=== PATIENT | male | born 1970 | race American Indian/Alaskan Native ===

== ENCOUNTER 2019-02-06 12:09 | Emergency (ER) | payer BC ==
[2019-02-06 12:23] VITALS: BP 173/102
--- NOTE | 2019-02-06 12:24 | Emergency Department Report ---
Blank Doc - Documentation Documentation: 48 y o male with Acid reflux dz presents with abdominal pain with nausea and vo mitting that started today. states he ate chick danny a yesterday no unusual water. intermittent active vomitting UA/UDS labs ordered
[2019-02-06] MEDS ORDERED: NACL 0.9% 1000 ML 1,000 ML IV ONE (13:04)
[2019-02-06] MEDS ORDERED: ZOFRAN IV ONE (13:04)
[2019-02-06] MEDS ORDERED: GEODON IM ONE (13:04)
[2019-02-06] MEDS ORDERED: BENTYL IM ONE (13:04)
[2019-02-06] MEDS ORDERED: PEPCID IV ONE (13:04)
[2019-02-06 13:07] LABS: Bilirubin,Urine NEG (Negative); Color,Urine Yellow (Yellow)
[2019-02-06 13:08] LABS: Blood,Urine NEG (Negative); Mucus,Urine 2+ /HPF; Protein,Urine <15 mg/dL mg/dL (Negative); RBC,Urine < 1.0 /HPF (0.0-6.0); Urobilinogen,Urine < 2.0 mg/dL (<2.0)
[2019-02-06] MEDS ORDERED: WATER FOR INJ Sterile (PF) 10 ML ONE (13:12)
[2019-02-06 13:25] LABS: Alanine Aminotransferase 20 units/L (7-56); Albumin 4.4 g/dL (3.9-5); BUN/Creatinine Ratio 10; Blood Urea Nitrogen 9 mg/dL (9-20); Calcium 9.1 mg/dL (8.4-10.2); Hemolysis Index 87
[2019-02-06 13:25] LABS: Amphetamine Screen,Urine PRESUMPTIVE NEGATIVE; Benzodiazepines Screen,Urine PRESUMPTIVE NEGATIVE; Cocaine Screen,Urine PRESUMPTIVE NEGATIVE; Methadone Screen,Urine PRESUMPTIVE NEGATIVE; Opiate Screen,Urine PRESUMPTIVE NEGATIVE
[2019-02-06 13:26] LABS: Basophils % (Auto) 0.6 % (0.0-1.8); Eosinophils % (Auto) 0.2 % (0.0-4.3); Hematocrit 42.1 % (35.5-45.6); Hemoglobin 14.6 gm/dl (11.8-15.2); Lymphocytes # (Auto) 1.2 K/mm3 (1.2-5.4); Lymphocytes % (Auto) 14.5 % (13.4-35.0); Mean Corpuscular HGB Conc 35 % (32-34); Mean Corpuscular Volume 93 fl (84-94); Monocytes # (Auto) 0.4 K/mm3 (0.0-0.8); Monocytes % (Auto) 4.5 % (0.0-7.3); Platelet Count 239 K/mm3 (140-440); Red Blood Count 4.51 M/mm3 (3.65-5.03); Red Cell Distribution Width 13.8 % (13.2-15.2)
[2019-02-06 13:39] LABS: Cannabinoid Screen,Urine PRESUMPTIVE POSITIVE
[2019-02-06] MEDS ORDERED: REGLAN IV ONE (15:54)
--- NOTE | 2019-02-06 17:00 | Emergency Department Report ---
Vomiting/Diarrhea - HPI Chief Complaint: Nausea/Vomiting/Diarrhea Stated Complaint: NAUSE/DIZZY/ Time Seen by Provider: 02/06/19 12:20 Duration: Today Severity: severe Nausea/Vomiting Severity: Severe Diarrhea Severity: None Pain Location: Epigastric Pain Severity: Mild Symptoms: No Able to Tolerate Fluids Other History: Patient is a 48-year-old [place] male with a past history of diabetes and gastroparesis who is here for epigastric discomfort. Patient is retching and gagging states he cannot keep anything down. ED Review of Systems ROS: Stated complaint: NAUSE/DIZZY/ Other details as noted in HPI Comment: All other systems reviewed and negative ED Past Medical Hx - Past Medical History Hx Hypertension: Yes Hx Diabetes: Yes Hx GERD: Yes Hx Asthma: Yes - Surgical History Past Surgical History?: No - Social History Smoking Status: Never Smoker Substance Use Type: None - Medications Home Medications: Home Medications Medication Instructions Recorded Confirmed Last Taken Type Dicyclomine [Bentyl] 10 mg PO QID #15 capsule 02/06/19 Unknown Rx Ondansetron [Zofran Odt] 4 mg PO Q8HR PRN #10 tab.rapdis 02/06/19 Unknown Rx Vomiting Diarrhea Exam - Exam General: Vital signs noted. distress secondary to nausea. HEENT: Yes Moist Mucous Membranes, No Pharyngeal Erythema, No Pharyngeal Exudates, No Rhinorrhea, No Conjuctival Injection, No Frontal Tenderness, No Maxillary Tenderness Neck: No Adenopathy, No Rigidity Lungs: Yes Clear Lung Sounds, Yes Good Air Exchange, No Wheezes, No Stridor, No Cough, No Nasal Flaring, No Retractions, No Use of Accessory Muscles Heart exam: Regular: Yes, Murmur: No, Tachycardia: No Abdomen: Tenderness: Yes (epigastric), Peritoneal Signs: No, Distention: No, Hyperactive Bowel sounds: No Skin exam: Rash: No, Edema: No, Normal turgor: Yes Neurologic: Alert and oriented, no deficits. Musculoskeletal: Unremarkable. ED Course Vital Signs 02/06/19 12:19 Temperature 97.9 F Pulse Rate 65 Respiratory 16 Rate Blood Pressure 173/102 O2 Sat by Pulse 99 Oximetry ED Medical Decision Making - Lab Data Result diagrams: 02/06/19 12:50 02/06/19 12:50 Lab Results 02/06/19 02/06/19 02/06/19 Range/Units 12:20 12:35 12:35 WBC (4.5-11.0) K/mm3 RBC (3.65-5.03) M/mm3 Hgb (11.8-15.2) gm/dl Hct (35.5-45.6) % MCV (84-94) fl MCH (28-32) pg MCHC (32-34) % RDW (13.2-15.2) % Plt Count (140-440) K/mm3 Lymph % (Auto) (13.4-35.0) % [place] % (Auto) (0.0-7.3) % Eos % (Auto) (0.0-4.3) % Baso % (Auto) (0.0-1.8) % Lymph # (1.2-5.4) K/mm3 [place] # (0.0-0.8) K/mm3 Eos # (0.0-0.4) K/mm3 Baso # (0.0-0.1) K/mm3 Seg Neutrophils % (40.0-70.0) % Seg Neutrophils # (1.8-7.7) K/mm3 Sodium (137-145) mmol/L Potassium (3.6-5.0) mmol/L Chloride (98-107) mmol/L Carbon Dioxide (22-30) mmol/L Anion Gap mmol/L BUN (9-20) mg/dL Creatinine (0.8-1.5) mg/dL Estimated GFR ml/min BUN/Creatinine Ratio % Glucose (75-100) mg/dL POC Glucose 231 H (70-105) Calcium (8.4-10.2) mg/dL Total Bilirubin (0.1-1.2) mg/dL AST (5-40) units/L ALT (7-56) units/L Alkaline Phosphatase (35-129) units/L Total Protein (6.3-8.2) g/dL Albumin (3.9-5) g/dL Albumin/Globulin Ratio % Amylase (27-131) units/L Lipase (13-60) units/L Urine Color Yellow (Yellow) Urine Turbidity Clear (Clear) Urine pH 7.0 (5.0-7.0) Ur Specific [place] 1.024 (1.003-1.030) Urine Protein <15 mg/dl (Negative) mg/dL Urine Glucose (UA) >=500 (Negative) mg/dL Urine Ketones Tr (Negative) mg/dL Urine Blood Neg (Negative) Urine Nitrite Neg (Negative) Urine Bilirubin Neg (Negative) Urine Urobilinogen < 2.0 (<2.0) mg/dL Ur Leukocyte Esterase Neg (Negative) Urine WBC (Auto) 1.0 (0.0-6.0) /HPF Urine RBC (Auto) < 1.0 (0.0-6.0) /HPF U Epithel Cells (Auto) 1.0 (0-13.0) /HPF Urine Mucus 2+ /HPF Urine Opiates Screen Presumptive negative Urine Methadone Screen Presumptive negative Ur Barbiturates Screen Presumptive negative Ur Phencyclidine Scrn Presumptive negative Ur Amphetamines Screen Presumptive negative U Benzodiazepines Scrn Presumptive negative Urine Cocaine Screen Presumptive negative U Marijuana (THC) Screen Presumptive positive Drugs of Abuse Note Disclamer Plasma/Serum Alcohol (0-0.07) % 02/06/19 02/06/19 02/06/19 Range/Units 12:50 12:50 12:50 WBC 8.2 (4.5-11.0) K/mm3 RBC 4.51 (3.65-5.03) M/mm3 Hgb 14.6 (11.8-15.2) gm/dl Hct 42.1 (35.5-45.6) % MCV 93 (84-94) fl MCH 32 (28-32) pg MCHC 35 H (32-34) % RDW 13.8 (13.2-15.2) % Plt Count 239 (140-440) K/mm3 Lymph % (Auto) 14.5 (13.4-35.0) % [place] % (Auto) 4.5 (0.0-7.3) % Eos % (Auto) 0.2 (0.0-4.3) % Baso % (Auto) 0.6 (0.0-1.8) % Lymph # 1.2 (1.2-5.4) K/mm3 [place] # 0.4 (0.0-0.8) K/mm3 Eos # 0.0 (0.0-0.4) K/mm3 Baso # 0.0 (0.0-0.1) K/mm3 Seg Neutrophils % 80.2 H (40.0-70.0) % Seg Neutrophils # 6.5 (1.8-7.7) K/mm3 Sodium 141 (137-145) mmol/L Potassium 3.9 (3.6-5.0) mmol/L Chloride 104.9 (98-107) mmol/L Carbon Dioxide 20 L (22-30) mmol/L Anion Gap 20 mmol/L BUN 9 (9-20) mg/dL Creatinine 0.9 (0.8-1.5) mg/dL Estimated GFR > 60 ml/min BUN/Creatinine Ratio 10 % Glucose 236 H (75-100) mg/dL POC Glucose (70-105) Calcium 9.1 (8.4-10.2) mg/dL Total Bilirubin 0.60 (0.1-1.2) mg/dL AST 18 (5-40) units/L ALT 20 (7-56) units/L Alkaline Phosphatase 46 (35-129) units/L Total Protein 6.9 (6.3-8.2) g/dL Albumin 4.4 (3.9-5) g/dL Albumin/Globulin Ratio 1.8 % Amylase 55 (27-131) units/L Lipase 24 (13-60) units/L Urine Color (Yellow) Urine Turbidity (Clear) Urine pH (5.0-7.0) Ur Specific [place] (1.003-1.030) Urine Protein (Negative) mg/dL Urine Glucose (UA) (Negative) mg/dL Urine Ketones (Negative) mg/dL Urine Blood (Negative) Urine Nitrite (Negative) Urine Bilirubin (Negative) Urine Urobilinogen (<2.0) mg/dL Ur Leukocyte Esterase (Negative) Urine WBC (Auto) (0.0-6.0) /HPF Urine RBC (Auto) (0.0-6.0) /HPF U Epithel Cells (Auto) (0-13.0) /HPF Urine Mucus /HPF Urine Opiates Screen Urine Methadone Screen Ur Barbiturates Screen Ur Phencyclidine Scrn Ur Amphetamines Screen U Benzodiazepines Scrn Urine Cocaine Screen U Marijuana (THC) Screen Drugs of Abuse Note Plasma/Serum Alcohol < 0.01 (0-0.07) % - Medical Decision Making Patient was hydrated and given meds for symptomatic relief and is feeling improvement. Patient discharged home. Critical care attestation.: If time is entered above; I have spent that time in minutes in the direct care of this critically ill patient, excluding procedure time. ED Disposition Clinical Impression: Gastroparesis Disposition: DC-01 TO HOME OR SELFCARE Is pt being admited?: No Does the pt Need Aspirin: No Condition: Stable Additional Instructions: Please follow-up with your mobility manager Time of Disposition: 16:40
== END 2019-02-06 17:10 | disposition home or self-care (01) ==
LOC: ED 12:09
DX: E11.43 Type 2 diabetes mellitus with diabetic autonomic (poly)neuropathy (principal); K31.84 Gastroparesis; I10 Essential (primary) hypertension; K21.9 Gastro-esophageal reflux disease without esophagitis; J45.909 Unspecified asthma, uncomplicated; Z88.6 Allergy status to analgesic agent
CPT/HCPCS: 36415; 80053; 80307; 81001; 82150; 82962; 83690; 85025; 96361; 96372; 96374; 96375; 99283; G0480; J0500; J2405; J2765; J3486; J7030; 80320

== ENCOUNTER 2019-10-16 08:50 | Emergency (ER) | payer BC ==
[2019-10-16] MEDS ORDERED: MORPHINE 2 MG/1 ML INJ IM ONE (10:53)
[2019-10-16] MEDS ORDERED: ALUM-MAG HYDROXIDE-SIMETHICONE 200-200-20MG/5ML ORAL LIQD 30 ML PO ONE (10:53)
[2019-10-16] MEDS ORDERED: LIDOCAINE VISCOUS 2% 15 ML ORAL LIQD PO ONE (10:53)
[2019-10-16] MEDS ORDERED: ONDANSETRON 4 MG/2 ML INJ IM ONE (10:54)
[2019-10-16] MEDS ORDERED: diphenhydrAMINE 50 MG/ML VIAL IM ONE (10:54)
--- NOTE | 2019-10-16 12:30 | Emergency Department Report ---
ED N/V/D HPI - General Chief complaint: Nausea/Vomiting/Diarrhea Stated complaint: N/V/ABD PAIN Time Seen by Provider: 10/16/19 10:30 Source: patient Mode of arrival: Ambulatory Limitations: No Limitations - History of Present Illness Initial comments: 49-year-old male with chronic abdominal pain, diarrhea and vomiting over the last 3 years. Patient states he was diagnosed with acid reflux by several gastroenterologists. States he recently had an upper GI and colonoscopy which were both unremarkable. Patient states every few months he will have e xacerbation of his GI symptoms. Patient presents today with epigastric pain and nausea. He was seen and evaluated 2 days ago at [facility]. Patient was discharged from the ER with several prescriptions, which patient states are currently not helping. Patient states usually when he received a GI cocktail along with morphine and Benadryl this usually relieves his symptoms. Patient reports marijuana use. MD complaint: nausea, vomiting, abdominal pain -: days(s) (5) Description of Vomiting: watery Associated Abdominal Pain: Yes Location: epigastric Radiation: other (diffuse abdomen) Severity: moderate Quality: aching Consistency: intermittent Improves with: medication Worsens with: eating Context: other (history of chronic abdominal pain) Associated Symptoms: nausea/vomiting. denies: fever/chills - Related Data Previous Rx's Medication Instructions Recorded Last Taken Type Dicyclomine [Bentyl] 10 mg PO QID #15 capsule 02/06/19 Unknown Rx Ondansetron [Zofran Odt] 4 mg PO Q8HR PRN #10 tab.rapdis 02/06/19 Unknown Rx Promethazine HCl [Phenergan SUPPOS] 1 supp RC Q6HR PRN #20 supp.rect 10/16/19 Unknown Rx Allergies Allergy/AdvReac Type Severity Reaction Status Date / Time morphine AdvReac Itching Verified 02/06/19 13:12 ED Review of Systems ROS: Stated complaint: N/V/ABD PAIN Other details as noted in HPI Comment: All other systems reviewed and negative Constitutional: denies: chills, fever Gastrointestinal: abdominal pain, nausea, vomiting, diarrhea ED Past Medical Hx - Past Medical History Previous Medical History?: Yes Hx Hypertension: Yes Hx Diabetes: Yes Hx GERD: Yes Hx Asthma: Yes - Social History Smoking Status: Never Smoker Substance Use Type: Marijuana - Medications Home Medications: Home Medications Medication Instructions Recorded Confirmed Last Taken Type Dicyclomine [Bentyl] 10 mg PO QID #15 capsule 02/06/19 Unknown Rx Ondansetron [Zofran Odt] 4 mg PO Q8HR PRN #10 tab.rapdis 02/06/19 Unknown Rx Promethazine HCl [Phenergan SUPPOS] 1 supp RC Q6HR PRN #20 supp.rect 10/16/19 Unknown Rx ED Physical Exam - General Limitations: No Limitations General appearance: alert, in no apparent distress - Head Head exam: Present: atraumatic, normocephalic - Eye Eye exam: Present: normal appearance - ENT ENT exam: Present: mucous membranes moist - Neck Neck exam: Present: normal inspection - Respiratory Respiratory exam: Present: normal lung sounds bilaterally. Absent: respiratory distress - Cardiovascular Cardiovascular Exam: Present: normal rhythm, bradycardia - GI/Abdominal GI/Abdominal exam: Present: soft, tenderness (mild epigastric tenderness). Absent: distended - Extremities Exam Extremities exam: Present: normal inspection - Neurological Exam Neurological exam: Present: alert, oriented X3 - Psychiatric Psychiatric exam: Present: normal affect, normal mood - Skin Skin exam: Present: warm, dry, intact, normal color ED Course Vital Signs 10/16/19 10/16/19 10/16/19 09:00 12:01 12:37 Temperature 98.4 F 98.4 F Pulse Rate 47 L 58 L 54 L Respiratory 18 18 16 Rate Blood Pressure 169/102 149/87 Blood Pressure 140/81 [Left] O2 Sat by Pulse 100 99 100 Oximetry ED Medical Decision Making - Medical Decision Making 49-year-old male with chronic GI issues. Recently seen at an outside facility 2 days ago for same. Vitals are normal here in the ED. Patient given GI cocktail, IM morphine and Benadryl. Patient feeling much better at this time. Tolerating by mouth. Feels comfortable with discharge home. Outpatient follow- up advised. Patient also advised to stop marijuana use as this may be a contributing factor to his abdominal pain and vomiting. Return precautions given. - Differential Diagnosis gastritis, gastroparesis, GERD Critical care attestation.: If time is entered above; I have spent that time in minutes in the direct care of this critically ill patient, excluding procedure time. ED Disposition Clinical Impression: Gastritis Disposition: DC- TO HOME OR SELFCARE Is pt being admited?: No Condition: Stable Instructions: Gastritis (ED) Prescriptions: Promethazine HCl [Phenergan SUPPOS] 1 supp RC Q6HR PRN #20 supp.rect PRN Reason: Nausea And Vomiting Referrals: DELTA PEARL MD [Primary Care Provider] - 3-5 Days [facility] [Provider Group] - 3-5 Days Time of Disposition: 12:30
[2019-10-16 12:38] VITALS: BP 140/81
== END 2019-10-16 12:37 | disposition home or self-care (01) ==
LOC: ED 08:50
DX: K29.70 Gastritis, unspecified, without bleeding (principal); I10 Essential (primary) hypertension; E11.9 Type 2 diabetes mellitus without complications; K21.9 Gastro-esophageal reflux disease without esophagitis; J45.909 Unspecified asthma, uncomplicated; F12.10 Cannabis abuse, uncomplicated; Z79.899 Other long term (current) drug therapy; Z88.6 Allergy status to analgesic agent
CPT/HCPCS: 96372; 99282; J1200; J2270; J2405

== ENCOUNTER 2019-10-17 00:29 | Emergency (ER) | payer BC ==
[2019-10-17 00:54] VITALS: BP 186/115
[2019-10-17] MEDS ORDERED: FAMOTIDINE 20 MG/2 ML INJ IV ONE (01:40)
[2019-10-17] MEDS ORDERED: ONDANSETRON 4 MG/2 ML INJ IV ONE (01:40)
[2019-10-17] MEDS ORDERED: SODIUM CHLORIDE 0.9% 1000 ML 1,000 ML IV ONE (01:40)
--- NOTE | 2019-10-17 01:48 | Emergency Department Report ---
ED Abdominal Pain HPI - General Chief Complaint: Abdominal Pain Stated Complaint: VOMITING STOMACH PAIN Time Seen by Provider: 10/17/19 01:34 Source: patient Mode of arrival: Ambulatory Limitations: No Limitations - History of Present Illness Initial Comments: Mrs. Coates is a 49 yo male with hx of DM, HTN, GERD who returns to ED with similar symptoms of abdominal pain, heart burn vomiting. He was seend this afternoon by my colleague. He "felt great" after treatment. He ate turkey and dressing. THe symptoms recurred. Generalized cramping pain with heartburn. These symptoms have recurred for the past 4 years. Has a new GI specialist. This summer, EGD and colonoscopy performed. Dx'd GERD. Continues to smoke marijuana although encouraged to stop by his specialist. PCP Dr. Sanya Olivas I reviewed EMR. Mr. Coates was treated with GI cocktail IM morphine and benadryl which improved his symptoms. MD Complaint: abdominal pain -: Gradual, This evening Location: diffuse Radiation: chest Severity: moderate Quality: aching, burning Consistency: constant Improves With: medication Worsens With: eating Context: other (recent ED evaluation this afternoon) Associated Symptoms: nausea, vomiting - Related Data Previous Rx's Medication Instructions Recorded Last Taken Type Dicyclomine [Bentyl] 10 mg PO QID #15 capsule 02/06/19 Unknown Rx Ondansetron [Zofran Odt] 4 mg PO Q8HR PRN #10 tab.rapdis 02/06/19 Unknown Rx Promethazine HCl [Phenergan SUPPOS] 1 supp RC Q6HR PRN #20 supp.rect 10/16/19 Unknown Rx Ondansetron [Zofran Odt] 4 mg PO Q8HR PRN #9 tab.rapdis 10/17/19 Unknown Rx Potassium Chloride [K-Dur] 2 tab PO QDAY 10 Days #20 tablet 10/17/19 Unknown Rx Allergies Allergy/AdvReac Type Severity Reaction Status Date / Time morphine AdvReac Itching Verified 02/06/19 13:12 ED Review of Systems ROS: Stated complaint: VOMITING STOMACH PAIN Other details as noted in HPI Comment: All other systems reviewed and negative Constitutional: denies: fever, malaise Cardiovascular: chest pain Gastrointestinal: abdominal pain, nausea, vomiting. denies: diarrhea, constipation ED Past Medical Hx - Past Medical History Previous Medical History?: Yes Hx Hypertension: Yes Hx Diabetes: Yes Hx GERD: Yes Hx Asthma: Yes - Surgical History Past Surgical History?: No - Social History Smoking Status: Current Some Day Smoker Substance Use Type: Marijuana - Medications Home Medications: Home Medications Medication Instructions Recorded Confirmed Last Taken Type Dicyclomine [Bentyl] 10 mg PO QID #15 capsule 02/06/19 Unknown Rx Ondansetron [Zofran Odt] 4 mg PO Q8HR PRN #10 tab.rapdis 02/06/19 Unknown Rx Promethazine HCl [Phenergan SUPPOS] 1 supp RC Q6HR PRN #20 supp.rect 10/16/19 Unknown Rx Ondansetron [Zofran Odt] 4 mg PO Q8HR PRN #9 tab.rapdis 10/17/19 Unknown Rx Potassium Chloride [K-Dur] 2 tab PO QDAY 10 Days #20 tablet 10/17/19 Unknown Rx ED Physical Exam - General Limitations: No Limitations General appearance: alert, in no apparent distress, other (appears well appears comfortable) - Head Head exam: Present: atraumatic, normocephalic - Eye Eye exam: Present: normal appearance - ENT ENT exam: Present: mucous membranes moist - Neck Neck exam: Present: normal inspection, full ROM - Respiratory Respiratory exam: Present: normal lung sounds bilaterally. Absent: respiratory distress, wheezes, rales, rhonchi - Cardiovascular Cardiovascular Exam: Present: regular rate, normal rhythm, normal heart sounds. Absent: systolic murmur, diastolic murmur, rubs, gallop - GI/Abdominal GI/Abdominal exam: Present: soft, normal bowel sounds. Absent: distended, tenderness, guarding, rebound - Rectal Rectal exam: Present: deferred - Extremities Exam Extremities exam: Present: normal inspection - Neurological Exam Neurological exam: Present: alert, oriented X3 - Psychiatric Psychiatric exam: Present: normal affect, normal mood - Skin Skin exam: Present: warm, dry, intact, normal color. Absent: rash ED Course Vital Signs 10/17/19 00:44 Temperature 98.7 F Pulse Rate 80 Respiratory 22 Rate Blood Pressure 186/115 O2 Sat by Pulse 100 Oximetry ED Medical Decision Making - Lab Data Result diagrams: 10/17/19 01:34 10/17/19 01:34 - Medical Decision Making Mr. Coates is a 49-year-old male who presents with 4 years of recurrent abdominal and chest pain. Has been diagnosed with GERD. I suspect gastroparesis versus cannabis hyperemesis syndrome. Symptoms greatly improved with supportive therapy including IV fluid therapy, IV famotidine, IV Zofran. I strongly encouraged marijuana use cessation. He'll follow with his PCP and personal GI physician. I have prescribed Zofran and potassium tablets. I do not detect peritonitis or obstruction during physical exam. I do not suspect ACS or dangerous entity of chest pain such as esophageal rupture, aortic dissection, PE. Critical care attestation.: If time is entered above; I have spent that time in minutes in the direct care of this critically ill patient, excluding procedure time. ED Disposition Clinical Impression: GERD (gastroesophageal reflux disease), Diabetes mellitus, Hypokalemia, Abdominal pain Disposition: DC-01 TO HOME OR SELFCARE Is pt being admited?: No Does the pt Need Aspirin: No Condition: Stable Instructions: Gastroesophageal Reflux Disease (ED), Abdominal Pain (ED) Prescriptions: Potassium Chloride [K-Dur] 2 tab PO QDAY 10 Days #20 tablet Ondansetron [Zofran Odt] 4 mg PO Q8HR PRN #9 tab.rapdis PRN Reason: Nausea Referrals: PRIMARY CARE, [Referring] - 3-5 Days
[2019-10-17 02:00] LABS: Basophils % (Auto) 0.4 % (0.0-1.8); Eosinophils % (Auto) 0.1 % (0.0-4.3); Hematocrit 44.8 % (35.5-45.6); Hemoglobin 15.7 gm/dl (11.8-15.2); Lymphocytes # (Auto) 1.4 K/mm3 (1.2-5.4); Lymphocytes % (Auto) 13.2 % (13.4-35.0); Mean Corpuscular HGB Conc 35 % (32-34); Mean Corpuscular Volume 91 fl (84-94); Monocytes # (Auto) 0.9 K/mm3 (0.0-0.8); Platelet Count 269 K/mm3 (140-440); Red Blood Count 4.93 M/mm3 (3.65-5.03); Red Cell Distribution Width 13.4 % (13.2-15.2)
[2019-10-17 02:32] LABS: Alanine Aminotransferase 20 units/L (7-56); Albumin 4.8 g/dL (3.9-5); BUN/Creatinine Ratio 14; Blood Urea Nitrogen 14 mg/dL (9-20); Calcium 9.3 mg/dL (8.4-10.2); Hemolysis Index 9
== END 2019-10-17 04:00 | disposition home or self-care (01) ==
LOC: ED 00:29
DX: K21.9 Gastro-esophageal reflux disease without esophagitis (principal); E87.6 Hypokalemia; I10 Essential (primary) hypertension; E11.9 Type 2 diabetes mellitus without complications; J45.909 Unspecified asthma, uncomplicated; F17.200 Nicotine dependence, unspecified, uncomplicated; F12.10 Cannabis abuse, uncomplicated; Z88.6 Allergy status to analgesic agent
CPT/HCPCS: 36415; 80053; 85025; 96361; 96374; 96375; 99283; J2405; J7030